=== PATIENT | male | born 1960 | race Caucasian/White ===

== ENCOUNTER 2019-07-31 19:33 | Inpatient (IN) | payer OTHER ==
[~2019-07-31] VITALS: Ht 177.8 cm; Wt 61.3 kg
[~2019-07-31 19:33] MED LIST: ASPI81TA45 PO; ATOR10TA9 PO; LEVE750T37 PO; LISI-170 PO; PREG150C PO; SERT100T32 PO; TIZA4TAB2 NG
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
[2019-07-31] MEDS ORDERED: DIPHENHYDRAMINE 50 MG/ML, 1ML ONE (19:59)
[2019-07-31] MEDS ORDERED: SODIUM CHLORIDE FLUSH 10ML SYR IVF ONE (20:00)
[2019-07-31] MEDS ORDERED: SODIUM CHLORIDE 0.9% 1,000ML IVBOLUS ONE (20:00)
[2019-07-31] MEDS ORDERED: DIPHENHYDRAMINE 50 MG/ML, 1ML IVPush ONE (20:30)
[2019-07-31 20:40] LABS: ALBUMIN 3.8 g/dL (3.4-5.0); ANION GAP 7 mmol/L (5-15); CALCIUM 8.5 mg/dL (8.5-10.1); CHLORIDE 103 mmol/L (98-107); CREATININE 0.98 mg/dL (0.7-1.3)
[2019-07-31 20:44] LABS: BASOPHILS % (AUTO) 0 % (0-1); EOSINOPHILS # (AUTO) 0.06 x10^3/uL (0-0.4); EOSINOPHILS % (AUTO) 1 % (1-7); LYMPHOCYTES # (AUTO) 0.24 x10^3/uL (1-3.4); LYMPHOCYTES % (AUTO) 2 % (22-44); MD NO; MEAN CORPUSCULAR HEMOGLOBIN 32.1 pg (27.5-34.5); MEAN CORPUSCULAR HGB CONC 33.3 g/dL (33.2-36.2); MEAN CORPUSCULAR VOLUME 96.3 fL (81-97); MEAN PLATELET VOLUME 8.2 fL (7.4-10.4); MONOCYTES # (AUTO) 0.56 x10^3/uL (0.2-0.8); MONOCYTES % (AUTO) 5 % (2-9); NEUTROPHILS % (AUTO) 93 % (42-75); PLATELET COUNT 159 x10^3/uL (130-400); RED BLOOD COUNT 4.64 x10^6/uL (4.38-5.82); RED CELL DISTRIBUTION WIDTH 14.5 % (9.4-14.8)
[2019-07-31] MEDS ORDERED: LORazepam 2 MG/ML, 1ML ONE ×2 (20:47→20:53)
--- NOTE | 2019-07-31 20:56 | NUR ---
PT ACTIVELY SEIZING. PHYSICIAN NOTIFIED. MEDICATED PER AUG. GRANDMAL SEIZURE LASTING APPROX 45 SEC. PT NOW POST DICTAL. EYES CLOSED. SUCTIONED MOUTH. AIRWAY CLEAR.
--- NOTE | 2019-07-31 21:25 | NUR ---
PT MOVED TO [facility] T 3 ASSUMED CARE OF PT, REPORT FROM MARVA Mg
[2019-07-31] MEDS ORDERED: LORazepam 2 MG/ML, 1ML IVPush ONE (21:30)
[2019-07-31] MEDS ORDERED: LEVETIRACETAM 1,000 MG in SODIUM CHLORIDE 0.9% 100 ML IV ONE ×2 (21:30→22:00)
--- NOTE | 2019-07-31 21:40 | NUR ---
PT RESTING KEPPRE INFUSING, PT NOT SEIZING OR TENSING UP AT THIS TIME
[2019-07-31 21:42] LABS: CULTURE INDICATED? YES; MICROSCOPIC INDICATED
[2019-07-31 22:07] VITALS: BP 118/76
--- NOTE | 2019-07-31 22:07 | NUR ---
BACK FROM CT PT SLEEPING IN NAD
[2019-07-31] MEDS ORDERED: AMLO10TA8 PO (22:16)
[2019-07-31] MEDS ORDERED: TAMS-11 PO (22:17)
[2019-07-31] MEDS ORDERED: OXYC5CAP2 PO (22:18)
[2019-07-31] MEDS ORDERED: OXCA300T19 PO (22:18)
[2019-07-31] MEDS ORDERED: PRAZ1CAP2 PO (22:19)
[2019-07-31] MEDS ORDERED: LEVETIRACETAM 1,000 MG in SODIUM CHLORIDE 0.9% 100 ML IV SCH (22:22)
[2019-07-31] MEDS ORDERED: ALPR0.5T7 PO (22:22)
[2019-07-31] MEDS ORDERED: VALPROATE SODIUM 100 MG/ML, 5ML IVPB STA (22:29)
--- NOTE | 2019-07-31 22:33 | NUR ---
awaiting icu orders for admit
[2019-07-31 22:49] LABS: AMPHETAMINE SCREEN, URINE Negative (Negative); BARBITURATE SCREEN, URINE Negative (Negative); BENZODIAZEPINE SCREEN, URINE Positive (Negative); CANNABINOID SCREEN, URINE Positive (Negative); COCAINE SCREEN, URINE Negative (Negative); METHADONE SCREEN, URINE Negative (Negative); OPIATE SCREEN, URINE Negative (Negative)
[2019-07-31] MEDS ORDERED: OXYcodone IR 5MG TABLET PO PRN (23:00)
[2019-07-31] MEDS ORDERED: ONDANSETRON 2MG/ML, 2ML IVPush PRN (23:00)
[2019-07-31] MEDS ORDERED: PROMETHAZINE 25 MG/ML, 1ML IM PRN (23:00)
[2019-07-31] MEDS ORDERED: hydrALAzine 20 MG/ML, 1ML IVPush PRN (23:00)
[2019-07-31] MEDS ORDERED: ONDANSETRON ODT 4 MG PO PRN (23:00)
[2019-07-31] MEDS ORDERED: TIZANIDINE 4MG TABLET NG PRN (23:00)
[2019-07-31] MEDS ORDERED: DOCUSATE 100 MG CAPSULE PO PRN (23:00)
[2019-07-31] MEDS ORDERED: POLYETHYLENE GLYCOL 17 GM PACKET PO PRN (23:00)
[2019-07-31] MEDS ORDERED: BISACODYL 10 MG SUPP PR PRN (23:00)
[2019-07-31] MEDS ORDERED: ACETAMINOPHEN 325 MG TABLET PO PRN (23:00)
--- NOTE | 2019-07-31 23:10 | NUR ---
report to tim walter to icu 6
[2019-07-31 23:16] LABS: FREE T4 (FREE THYROXINE) 1.08 ng/dL (0.76-1.46)
[2019-07-31] MEDS: SODIUM CHLORIDE 0.9% 1,000 ML IV SCH (23:59)
[2019-08-01] MEDS: HEPARIN 5,000 UNITS/ML, 1ML SQ SCH ×3 (00:19→15:59)
[2019-08-01] MEDS: morphine SULFATE 10 MG/ML, 1ML IVPush PRN ×3 (00:27→10:46)
[2019-08-01 05:08] LABS: BASOPHILS # (AUTO) 0.01 x10^3/uL (0-0.1); BASOPHILS % (AUTO) 0 % (0-1); EOSINOPHILS % (AUTO) 0 % (1-7); LYMPHOCYTES # (AUTO) 0.57 x10^3/uL (1-3.4); LYMPHOCYTES % (AUTO) 7 % (22-44); MD NO; MEAN CORPUSCULAR HEMOGLOBIN 32.3 pg (27.5-34.5); MEAN CORPUSCULAR HGB CONC 33.4 g/dL (33.2-36.2); MEAN CORPUSCULAR VOLUME 96.5 fL (81-97); MEAN PLATELET VOLUME 8.1 fL (7.4-10.4); MONOCYTES # (AUTO) 0.65 x10^3/uL (0.2-0.8); MONOCYTES % (AUTO) 8 % (2-9); NEUTROPHILS # (AUTO) 7.41 x10^3/uL (1.8-6.8); NEUTROPHILS % (AUTO) 86 % (42-75); PLATELET COUNT 130 x10^3/uL (130-400); RED BLOOD COUNT 4.19 x10^6/uL (4.38-5.82)
[2019-08-01 05:10] LABS: CHLORIDE 105 mmol/L (98-107)
[2019-08-01 05:15] LABS: ALANINE AMINOTRANSFERASE 31 U/L (12-78); ALBUMIN 3.1 g/dL (3.4-5.0); ALKALINE PHOSPHATASE 67 U/L (45-117); ANION GAP 6 mmol/L (5-15); BILIRUBIN,TOTAL 0.4 mg/dL (0.2-1.0); CALCIUM 8.2 mg/dL (8.5-10.1); CHOLESTEROL, TOTAL 116 mg/dL (140-239); CREATININE 0.73 mg/dL (0.7-1.3); HDL CHOL % 51 % (26-37); HDL CHOLESTEROL (DIRECT) 59 mg/dL (40-60); LDL CHOLESTEROL,CALCULATED 48 mg/dL (54-169); LDL/HDL RATIO 0.8 (0.5-3.0); TRIGLYCERIDES 46 mg/dL (50-200); VLDL CHOLESTEROL 9 mg/dL (0-25)
[2019-08-01] MEDS: VALPROATE SODIUM 500 MG in SODIUM CHLORIDE 0.9% 100 ML IV SCH ×3 (08:19→17:44)
[2019-08-01] MEDS: PREGABALIN 150 MG CAPSULE PO SCH ×4 (09:00→20:22)
[2019-08-01] MEDS: OXYcodone IR 5MG TABLET PO SCH (09:00)
[2019-08-01] MEDS: AMLODIPINE 10 MG TAB PO SCH (09:00)
[2019-08-01] MEDS: TAMSULOSIN 0.4 MG CAP.ER.24H PO SCH (09:00)
[2019-08-01] MEDS: OXCARBAZEPINE 300MG TABLET PO SCH ×2 (09:00→20:19)
[2019-08-01] MEDS: PRAZOSIN 1 MG CAPSULE PO SCH (09:00)
[2019-08-01] MEDS: SERTRALINE 100MG TABLET PO SCH (09:00)
[2019-08-01] MEDS: SODIUM CHLORIDE 0.9% 1,000 ML IV SCH (15:59)
[2019-08-01] MEDS: ATORVASTATIN 10 MG TABLET PO SCH ×2 (20:19→20:21)
[2019-08-02] MEDS: HEPARIN 5,000 UNITS/ML, 1ML SQ SCH ×2 (00:06→09:10)
[2019-08-02] MEDS: VALPROATE SODIUM 500 MG in SODIUM CHLORIDE 0.9% 100 ML IV SCH (00:06)
[2019-08-02] MEDS ORDERED: VALP500S PO (09:00)
[2019-08-02] MEDS ORDERED: OXCA300T19 PO (09:00)
[2019-08-02] MEDS: TAMSULOSIN 0.4 MG CAP.ER.24H PO SCH (09:08)
[2019-08-02] MEDS: SERTRALINE 100MG TABLET PO SCH (09:09)
[2019-08-02] MEDS: OXYcodone IR 5MG TABLET PO SCH (09:09)
[2019-08-02] MEDS: AMLODIPINE 10 MG TAB PO SCH (09:09)
[2019-08-02] MEDS: PREGABALIN 150 MG CAPSULE PO SCH (09:09)
[2019-08-02] MEDS: PRAZOSIN 1 MG CAPSULE PO SCH (09:09)
[2019-08-02] MEDS: OXCARBAZEPINE 300MG TABLET PO SCH (09:12)
== END 2019-08-02 10:45 | disposition home or self-care (01) | DRG 101 ==
LOC: ED 22:02 → ICU 23:03
PROVIDERS: ADMIT Internal Medicine; ATTEND Internal Medicine
PROC: 0T9B70Z Drainage of Bladder with Drainage Device, Via Natural or Artificial Opening (ICD-10-PCS; principal; 2019-07-31)
DX: G40.901 Epilepsy, unspecified, not intractable, with status epilepticus (principal); G81.94 Hemiplegia, unspecified affecting left nondominant side; E78.5 Hyperlipidemia, unspecified; G62.9 Polyneuropathy, unspecified; G89.29 Other chronic pain; I10 Essential (primary) hypertension; Z96.89 Presence of other specified functional implants; N40.0 Benign prostatic hyperplasia without lower urinary tract symptoms; Z66 Do not resuscitate; Z79.899 Other long term (current) drug therapy; Z86.73 Personal history of transient ischemic attack (TIA), and cerebral infarction without residual deficits; Z98.1 Arthrodesis status
CPT/HCPCS: 36415; 70450; 80048; 80053; 80061; 80157; 80164; 80307; 81001; 82040; 83036; 83735; 84439; 84443; 85025; 87081; 87086; 87106; 95819; 96374; 96375; 99291; G0378; J1644; J1953; J1200; J2060; J2270; J7030